=== PATIENT | female | born 1995 | race Caucasian/White ===

== ENCOUNTER 2024-02-29 10:31 | Observation (INO) | payer OTHER ==
[~2024-02-29] VITALS: Ht 152.4 cm; Wt 76.2 kg
[~2024-02-29 10:31] MED LIST: AMOX-429 PO; DESO1TAB66 PO; ONDA8TAB5 PO
[2024-02-29 10:33] VITALS: BP 155/95; PULSE 120; RESP 20
[2024-02-29 11:46] LABS: APPEARANCE,URINE CLOUDY (CLEAR); BILIRUBIN,URINE NEGATIVE (NEGATIVE); COLOR,URINE LIGHT-YELLOW (YELLOW); GLUCOSE, URINE (UA) NEGATIVE (NEGATIVE); KETONES,URINE NEGATIVE (NEGATIVE); LEUKOCYTE ESTERASE ,URINE 500 Leu/uL (NEGATIVE); NITRATE,URINE NEGATIVE (NEGATIVE); OCCULT BLOOD,URINE NEGATIVE (NEGATIVE); PH,URINE 7.5 (5.0-8.0); PROTEIN,URINE 10 mg/dL (NEGATIVE); UROBILINOGEN,URINE 0.2 mg/dL (0.2-1.0)
[2024-02-29 11:50] LABS: ADD UA MICROSCOPIC YES
[2024-02-29 12:02] LABS: BACTERIA,URINE RARE /HPF (None Seen); MUCUS,URINE RARE LPF (None Seen); OTHER CASTS, URINE 3 /LPF (None Seen); SQUAMOUS EPITHELIAL CELL,UR FEW /HPF (0-2)
[2024-02-29 12:12] LABS: BASOPHILS # (AUTO) 0.02 K/uL (0.00-0.20); BASOPHILS % (AUTO) 0.2 % (0.0-5.0); EOSINOPHILS # (AUTO) 0.12 K/uL (0.00-0.70); EOSINOPHILS % (AUTO) 1.1 % (0.0-8.0); HEMATOCRIT 35.9 % (36-48); IMMATURE GRANULOCYTE ABSOLUTE 0.16 K/uL (0-1); LYMPHOCYTES # (AUTO) 1.4 K/uL (1.0-4.8); LYMPHOCYTES % (AUTO) 13.1 % (21.0-51.0); MEAN CORPUSCULAR HEMOGLOBIN 31.9 pg (27.0-33.0); MEAN CORPUSCULAR HGB CONC 34.3 g/dL (32.0-36.0); MONOCYTES # (AUTO) 0.9 K/uL (0.1-1.0); MONOCYTES % (AUTO) 7.9 % (3.0-13.0); NEUTROPHILS # (AUTO) 8.4 K/uL (1.8-7.7); NEUTROPHILS % (AUTO) 76.2 % (40.0-77.0); PLATELET COUNT (AUTO) 217 K/uL (130-400); RED BLOOD CELL COUNT(AUTO) 3.86 MIL/uL (4.00-5.50); RED CELL DISTRIBUTION WIDTH 12.7 % (11.0-15.5)
[2024-02-29 12:29] LABS: FIBRINOGEN 442 mg/dL (180-350); INR <= 0.93 (0.85-1.15); PROTHROMBIN TIME 9.8 SEC (9.6-11.6)
[2024-02-29 12:31] LABS: PARTIAL THROMBOPLASTIN TIME 22.5 SEC (26.3-35.5)
[2024-02-29 12:32] LABS: ALBUMIN 2.5 g/dL (3.5-5.0); BILIRUBIN,TOTAL 0.3 mg/dL (0.2-1.0); CREATININE 0.7 mg/dL (0.5-1.0); POTASSIUM 3.9 mmol/L (3.5-5.1); TOTAL PROTEIN, SERUM 6.1 g/dL (6.0-8.3); URIC ACID 3.8 mg/dL (2.6-7.2)
== END 2024-02-29 13:05 | disposition home or self-care (01) ==
LOC: EDH 10:31 → LDH 10:53
PROVIDERS: ADMIT Obstetrics & Gynecology; ATTEND Obstetrics & Gynecology
DX: O16.3 Unspecified maternal hypertension, third trimester (principal); Z3A.29 29 weeks gestation of pregnancy; Z79.899 Other long term (current) drug therapy
CPT/HCPCS: 59025; 84550; 80053; 85025; 85384; 85610; 85730; 87086; 81001; 36415; G0378 ×2; G0379

== ENCOUNTER 2024-04-11 14:20 | Observation (INO) | payer OTHER ==
[~2024-04-11] VITALS: Ht 152.4 cm; Wt 78.9 kg
[2024-04-11 14:21] VITALS: BP 147/98; PULSE 110; RESP 18; TEMP 99
[2024-04-11 14:56] LABS: BASOPHILS # (AUTO) 0.03 K/uL (0.00-0.20); BASOPHILS % (AUTO) 0.3 % (0.0-5.0); HEMATOCRIT 36.5 % (36-48); IMMATURE GRANULOCYTE ABSOLUTE 0.16 K/uL (0-1); LYMPHOCYTES # (AUTO) 1.2 K/uL (1.0-4.8); LYMPHOCYTES % (AUTO) 11.8 % (21.0-51.0); MEAN CORPUSCULAR HEMOGLOBIN 31.8 pg (27.0-33.0); MEAN CORPUSCULAR HGB CONC 34.2 g/dL (32.0-36.0); MEAN CORPUSCULAR VOLUME 92.9 fL (79-99); MONOCYTES # (AUTO) 0.8 K/uL (0.1-1.0); MONOCYTES % (AUTO) 7.2 % (3.0-13.0); NEUTROPHILS # (AUTO) 8.2 K/uL (1.8-7.7); NEUTROPHILS % (AUTO) 78.2 % (40.0-77.0); PLATELET COUNT (AUTO) 232 K/uL (130-400); RED BLOOD CELL COUNT(AUTO) 3.93 MIL/uL (4.00-5.50); RED CELL DISTRIBUTION WIDTH 12.6 % (11.0-15.5); WHITE BLOOD COUNT (AUTO) 10.5 K/uL (4.8-10.8)
[2024-04-11 15:04] LABS: APPEARANCE,URINE CLEAR (CLEAR); BILIRUBIN,URINE NEGATIVE (NEGATIVE); COLOR,URINE LIGHT-YELLOW (YELLOW); GLUCOSE, URINE (UA) NEGATIVE (NEGATIVE); KETONES,URINE NEGATIVE (NEGATIVE); LEUKOCYTE ESTERASE ,URINE NEGATIVE Leu/uL (NEGATIVE); NITRATE,URINE NEGATIVE (NEGATIVE); OCCULT BLOOD,URINE NEGATIVE (NEGATIVE); PROTEIN,URINE NEGATIVE (NEGATIVE); UROBILINOGEN,URINE 0.2 mg/dL (0.2-1.0)
[2024-04-11 15:08] LABS: CREATININE 0.7 mg/dL (0.5-1.0); POTASSIUM 3.2 mmol/L (3.5-5.1)
[2024-04-11 15:11] LABS: INR <= 0.93 (0.85-1.15); PROTHROMBIN TIME 9.6 SEC (9.6-11.6)
[2024-04-11 15:12] LABS: PARTIAL THROMBOPLASTIN TIME 23.6 SEC (26.3-35.5)
[2024-04-11 15:13] LABS: ADD UA MICROSCOPIC YES; ALBUMIN 2.5 g/dL (3.5-5.0); BILIRUBIN,TOTAL 0.3 mg/dL (0.2-1.0); TOTAL PROTEIN, SERUM 6.4 g/dL (6.0-8.3); URIC ACID 4.5 mg/dL (2.6-7.2)
[2024-04-11 15:15] LABS: RBC,URINE 0-1 /HPF (0-1); SQUAMOUS EPITHELIAL CELL,UR RARE /HPF (0-2); WBC,URINE 0-1 /HPF (0-1)
[2024-04-11 15:15] LABS: FIBRINOGEN 499 mg/dL (180-350)
== END 2024-04-11 16:11 | disposition home or self-care (01) ==
LOC: EDH 14:20 → LDH 14:21
PROVIDERS: ADMIT Obstetrics & Gynecology; ATTEND Obstetrics & Gynecology
DX: O13.3 Gestational [pregnancy-induced] hypertension without significant proteinuria, third trimester (principal); Z3A.36 36 weeks gestation of pregnancy
CPT/HCPCS: 59025; 84550; 80053; 85025; 85384; 85610; 85730; 81001; 36415; G0378 ×2; G0379; A4351

== ENCOUNTER 2024-04-21 22:52 | Inpatient (IN) | payer OTHER ==
[~2024-04-21] VITALS: Ht 152.4 cm; Wt 79.8 kg
[2024-04-21 23:15] LABS: APPEARANCE,URINE CLOUDY (CLEAR); BILIRUBIN,URINE NEGATIVE (NEGATIVE); COLOR,URINE LIGHT-YELLOW (YELLOW); GLUCOSE, URINE (UA) NEGATIVE (NEGATIVE); KETONES,URINE NEGATIVE (NEGATIVE); LEUKOCYTE ESTERASE ,URINE 25 Leu/uL (NEGATIVE); NITRATE,URINE NEGATIVE (NEGATIVE); OCCULT BLOOD,URINE LARGE (NEGATIVE); PROTEIN,URINE 50 mg/dL (NEGATIVE); UROBILINOGEN,URINE 0.2 mg/dL (0.2-1.0)
[2024-04-21 23:16] LABS: ADD UA MICROSCOPIC YES
[2024-04-21] MEDS: LACTATED RINGERS 1000ML 1,000 ML IV PRN (23:18)
[2024-04-21 23:22] LABS: BACTERIA,URINE RARE /HPF (None Seen); MUCUS,URINE RARE LPF (None Seen); OTHER CASTS, URINE 3 /LPF (None Seen); SQUAMOUS EPITHELIAL CELL,UR MANY /HPF (0-2)
[2024-04-21 23:27] LABS: HEMATOCRIT 37.5 % (36-48); MEAN CORPUSCULAR HEMOGLOBIN 31.7 pg (27.0-33.0); MEAN CORPUSCULAR HGB CONC 33.9 g/dL (32.0-36.0); MEAN CORPUSCULAR VOLUME 93.5 fL (79-99); RED BLOOD CELL COUNT(AUTO) 4.01 MIL/uL (4.00-5.50); RED CELL DISTRIBUTION WIDTH 12.5 % (11.0-15.5); WHITE BLOOD COUNT (AUTO) 10.6 K/uL (4.8-10.8)
[2024-04-22 00:08] LABS: HIV 1&2 ANTIBODY Non-Reactive (Negative)
[2024-04-22 00:09] LABS: HIV-1 p24 Antigen Non-Reactive (Negative)
[2024-04-22] MEDS ORDERED: LABE200T7 PO (00:29)
[2024-04-22] MEDS ORDERED: ePHEDrine SULFate 50 MG/ML AMPULE IVP PRN (00:30)
[2024-04-22] MEDS ORDERED: NALoxone HCL 0.4 MG/1 ML ML IV PRN (00:30)
[2024-04-22] MEDS ORDERED: LACTATED RINGERS 500 ML 500 ML IV PRN (00:30)
[2024-04-22] MEDS: PROMETHAZINE HCL 25 MG/ML 1ML AMPULE IM PRN (05:50)
[2024-04-22] MEDS: MEPERIDINE-PF 50 MG/ML SYG IVP PRN (05:55)
[2024-04-22] MEDS ORDERED: FENTanyl CITRate PF 50 MCG/1 ML 2ML VIAL ONE (08:24)
[2024-04-22] MEDS: LAbetaLOL HCL 200 MG TABLET PO SCH (08:56)
[2024-04-22 10:29] LABS: RAPID PLASMA REAGIN NONREACTIVE (NONREACTIVE)
[2024-04-22] MEDS ORDERED: MISOPROSTOL 200 MCG TABLET ONE (14:48)
[2024-04-22] MEDS ORDERED: LIDOCAINE HCL 1% 20 ML VIAL INJ SCH (15:06)
[2024-04-22] MEDS ORDERED: acetaMINOPHEN WITH coDEINE 1 TAB TAB PO PRN (16:00)
[2024-04-22] MEDS ORDERED: LANOLIN 30GM OINTMENT TP PRN (16:00)
[2024-04-22 17:47] VITALS: BP 133/72; PULSE 81; TEMP 98.2
[2024-04-22] MEDS: LIDOCAINE HCL 1% 20 ML VIAL ONE (18:06)
[2024-04-22 19:40] VITALS: BP 132/83; PULSE 80; RESP 19; TEMP 100.4
[2024-04-22 20:10] VITALS: TEMP 99.8
[2024-04-22] MEDS: doCUSate SODIUM 100 MG CAP PO SCH (20:19)
[2024-04-22] MEDS: acetaMINOPHEN 325 MG TAB PO PRN (20:21)
[2024-04-22 21:17] VITALS: TEMP 98
[2024-04-23 03:20] VITALS: BP 128/83; PULSE 82; RESP 18; TEMP 98.3
[2024-04-23] MEDS: ibuPROFEN 600 MG TABLET PO PRN (03:27)
[2024-04-23 07:04] LABS: HEMATOCRIT 34.8 % (36-48); MEAN CORPUSCULAR HEMOGLOBIN 31.5 pg (27.0-33.0); MEAN CORPUSCULAR HGB CONC 32.8 g/dL (32.0-36.0); MEAN CORPUSCULAR VOLUME 96.1 fL (79-99); RED BLOOD CELL COUNT(AUTO) 3.62 MIL/uL (4.00-5.50); RED CELL DISTRIBUTION WIDTH 12.9 % (11.0-15.5); WHITE BLOOD COUNT (AUTO) 15.6 K/uL (4.8-10.8)
[2024-04-23 08:23] VITALS: BP 136/88; PULSE 96; RESP 18; TEMP 98.4
[2024-04-23 12:39] VITALS: BP 128/83; PULSE 105; RESP 20; TEMP 98.4
[2024-04-23] MEDS: BENZOCAINE/LANOLIN/ALOE VERA 60 ML AEROSOL TP PRN (13:23)
[2024-04-23] MEDS: WITCH HAZEL 1 PAD TP PRN (13:23)
[2024-04-23] MEDS: FLU VACC TS2024-25(6MOS UP)/PF 45 MCG/0.5 ML ML IM ONE (13:28)
[2024-04-23] MEDS ORDERED: IBUP-2077 PO (14:50)
[2024-04-23] MEDS ORDERED: DOCU-116 PO (14:50)
[2024-04-23 16:17] VITALS: BP 123/85; PULSE 102; RESP 20; TEMP 98.4
== END 2024-04-23 18:30 | disposition home or self-care (01) | DRG 807 ==
LOC: EDH 22:52 → LDH 22:53 → OBSVTOIN 22:53 → EDH 22:57 → WSH 04-22 17:31
PROVIDERS: ADMIT Obstetrics & Gynecology; ATTEND Obstetrics & Gynecology
PROC: 10E0XZZ Delivery of Products of Conception, External Approach (ICD-10-PCS; principal; 2024-04-22)
PROC: 0KQM0ZZ Repair Perineum Muscle, Open Approach (ICD-10-PCS; 2024-04-22)
PROC: 3E0R3BZ Introduction of Anesthetic Agent into Spinal Canal, Percutaneous Approach (ICD-10-PCS; 2024-04-22)
PROC: 00HU33Z Insertion of Infusion Device into Spinal Canal, Percutaneous Approach (ICD-10-PCS; 2024-04-22)
PROC: 3E02340 Introduction of Influenza Vaccine into Muscle, Percutaneous Approach (ICD-10-PCS; 2024-04-23)
DX: O10.92 Unspecified pre-existing hypertension complicating childbirth (principal); Z37.0 Single live birth; O70.1 Second degree perineal laceration during delivery; Z3A.37 37 weeks gestation of pregnancy; F41.9 Anxiety disorder, unspecified; O13.4 Gestational [pregnancy-induced] hypertension without significant proteinuria, complicating childbirth; Z23 Encounter for immunization
CPT/HCPCS: 36415; 81001; 82120; 82948; 85027; 86592; 86701; 86850; 86900; 86901; 87086; 87340; 87390; A4351; G0378; J2175; J2550; J2795; J3010; J7120; Q2035; Q2038